=== PATIENT | male | born 1975 | race African-American/Black ===

== ENCOUNTER 2018-12-27 22:22 | Emergency (ER) | payer BC ==
[2018-12-27 22:29] VITALS: TEMP 98.2; BMI 30.3
--- NOTE | 2018-12-27 23:03 | PDOC ---
History of Present Illness - General Chief Complaint: Injury Stated Complaint: INJURED PINKY Time Seen by Provider: 12/27/18 22:42 Past History - Past Medical History Allergies/Adverse Reactions: Allergies Allergy/AdvReac Type Severity Reaction Status Date / Time No Known Allergies Allergy Verified 12/27/18 22:29 Home Medications: Ambulatory Orders Ibuprofen 800 mg PO TID #30 tablet 12/28/18 - Suicide/Smoking/Psychosocial Hx Smoking History: Current every day smoker Have you smoked in the past 12 months: No Number of Cigarettes Smoked Daily: 0 Information on smoking cessation initiated: Yes Hx Alcohol Use: No Drug/Substance Use Hx: No *Physical Exam - Vital Signs Last Vital Signs Temp Pulse Resp BP Pulse Ox 98.2 F 100 H 18 140/84 96 12/27/18 22:25 12/27/18 22:25 12/27/18 22:25 12/27/18 22:25 12/27/18 22:25 ED Treatment Course - RADIOLOGY Radiology Studies Ordered: Category Date Time Status HAND- RIGHT [RAD] Stat Radiology 12/27/18 23:02 Ordered *DC/Admit/Observation/Transfer Diagnosis at time of Disposition: Proximal phalanx fracture of finger Qualifiers: Encounter type: initial encounter Finger: little finger Fracture type: closed Fracture alignment: nondisplaced Laterality: right Qualified Code(s): S62.646A - Nondisplaced fracture of proximal phalanx of right little finger, initial encounter for closed fracture - Discharge Dispostion Disposition: HOME Condition at time of disposition: Stable Decision to Admit order: No - Referrals Referrals: Bart Holly MD [Staff Physician] - - Patient Instructions Printed Discharge Instructions: DI for Finger Fracture Additional Instructions: You have a fractured proximal phalynx (R 5th finger fracture) Please wear the splint until you can see orthopedics. Do not take it off Cover the splint to shower. You may take motrin 800mg every 8 hours as needed for pain Follow up with orthopedics in 3-5 days. A referral has been provided to you. Call the office tomorrow Return to the ER for worsening pain, fever, or if you have any changes in your symptoms - Post Discharge Activity
[2018-12-27] MEDS ORDERED: IBUPROFEN 600 MG TABLET (FP) PO ONE (23:06)
[2018-12-27] MEDS: IBUPROFEN 600 MG TABLET (FP) PO ONE ×2 (23:10→23:41)
[2018-12-28 00:27] VITALS: BP 135/86; PULSE 93
== END 2018-12-28 00:25 | disposition home or self-care (01) ==
LOC: JER 22:22
PROC: 2W3JX1Z Immobilization of Right Finger using Splint (ICD-10-PCS; principal; 2018-12-27)
DX: S62.646A Nondisplaced fracture of proximal phalanx of right little finger, initial encounter for closed fracture (principal); X58.XXXA Exposure to other specified factors, initial encounter; Y93.61 Activity, american tackle football; Y92.39 Other specified sports and athletic area as the place of occurrence of the external cause; Y99.8 Other external cause status
CPT/HCPCS: 73130-TC-RT-FY; 99282-25